=== PATIENT | male | born 1980 | race Caucasian/White ===

== ENCOUNTER → 2016-07-31 | Outpatient (CLI) | payer OTHER ==
--- NOTE | 2016-07-31 12:46 | REP ---
MR BRAIN WITHOUT AND WITH CONTRAST: HISTORY: Tumor. Contrast: ProHance 30 mL. COMPARISON: 02/07/2016 There are no areas of abnormal signal intensity in the brain parenchyma. There is no intraparenchymal hemorrhage, infarct, or midline shift. A 1 cm isointense nodule is present in the body of the right lateral ventricle. There is no enhancement. This is unchanged compared to the previous study. There is no hydrocephalus or extracerebral collection. The sinuses are clear. IMPRESSION: There is a 1 cm isointense nodule in the body of the right lateral ventricle unchanged in size compared to the previous study. 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 Signed by Manjit Michel MD 07/31/2016 01:08 P
== END ==
LOC: M RAD 10:27
PROVIDERS: ATTEND Neurological Surgery
DX: D49.6 Neoplasm of unspecified behavior of brain (principal)

== ENCOUNTER 2016-09-08 14:19 | Emergency (ER) | payer OTHER ==
--- NOTE | 2016-09-08 15:52 | REP ---
Clinical: Headache and dizziness . Comparison: 12/24/2015 . Findings: The sulci, and cisterns are normal in position and appearance. 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 Brooks-white differentiation is maintained. No acute intracranial hemorrhage, mass/mass effect, pathology or trauma/injury. No evidence for acute infarction. No extra-axial fluid collection. Calvarium is intact. Paranasal sinuses and mastoid air cells are clear. Impression: 1. Stable lesion in the right lateral ventricle consistent with diagnosis subependymoma. 2. No evidence for acute intracranial pathology or trauma/injury. Signed by Pelon Louise MD 09/08/2016 03:44 P
--- NOTE | 2016-09-08 16:15 | EDDOCDS ---
Nurse's Notes [facility] Name: Andrea Quintana Age: 36 yrs Sex: Male : 1980 Arrival Date: 09/08/2016 Time: 14:19 Bed PR Private MD: Jayne Clark Diagnosis: Otitis media, unspecified, left ear-WITH SERROUS EFFUSION Presentation: 09/08 14:26 Presenting complaint: Patient states: ''Fullness to both ears'' for 2 weeks, complains dwg of intermittent dizziness for one week. Also occasional tinnitus. Adult Sepsis Screening: The patient does not have new or worsening altered mentation. Patient's respiratory rate is less than 22. Systolic blood pressure is greater than 100. Patient has a qSOFA score of 0- Negative Sepsis Screen. Suicide/Homicide risk assessment- the patient denies having any suicidal and/or homicidal ideations and does not present with any other emotional, behavioral or mental health complaints. Status: Patient is not a service counselor or dependent. Transition of care: patient was not received from another setting of care. 14:26 Acuity: MANE Level 4 dwg 14:26 Method Of Arrival: Walkin/Carried/Asstd dwg Triage Assessment: 14:30 General: Appears in no apparent distress. Pain: Denies pain. HIV screening NA for this dwg visit Offered previously. Historical: - Allergies: Environmental allergies; - Home Meds: 1. amlodipine 2.5 mg Oral tab 1 tab once daily (Last dose: 09/08/2016 08:00) 2. Flonase 50 mcg/actuation Nasal spsn 1 spray 2 times per day (Last dose: 09/08/2016 08:00) - PMHx: benign tumor rt ventricle of brain; Hypertension; - PSHx: Ear tubes; - Social history: Smoking status: Electronic cigarettes No barriers to communication noted, The patient speaks fluent Icelandic. - : The pt / caregiver states he / she is not on anticoagulants. Home medication list is obtained from the patient. - Exposure Risk Screening:: None identified. Screenin:13 Screening information is obtained from the patient. Fall risk: No risks identified. jjr Assistance ADL's: requires no assistance with activities of daily living. Abuse/DV Screen: The patient / caregiver reports he/she is: not in a situation that causes fear, pain or injury. Nutritional screening: No deficits noted. Advance Directives: There is no active DNR order. home support is adequate. Assessment: 16:13 General: Appears in no apparent distress, Behavior is appropriate for age. Pain: Denies jjr pain. Neurological: No deficits noted. Reports dizziness. Respiratory: No deficits noted. Derm: No deficits noted. Vital Signs: 14:20 BP 169 / 95; Pulse 94; Resp 18; Temp 97.6; Pulse Ox 97% on R/A; Weight 170.1 kg (R); dem1 Height 6 ft. 4 in. (193.04 cm) (R); Pain 0/10; 14:38 BP 160 / 92 LA Sitting (man/lg); jb5 16:12 BP 130 / 88 LA Sitting (man/lg); Pulse 89; Resp 18; Temp 97.8(O); Pulse Ox 97% on R/A; jjr Pain 0/10; 16:12 BP 162 / 91 LA Sitting (auto/lg); jjr 14:20 Body Mass Index 45.65 (170.10 kg, 193.04 cm) [facility] Vitals: 14:20 Log In Time: September 08, 2016 at 14:19. [facility] ED Course: 14:20 Patient visited by Jeff Neil. dem1 14:20 Jayne Clark is Private Physician. dem1 14:20 Patient moved to Waiting dem1 14:22 Patient moved to Pre RCE dem1 14:28 Triage Initiated dwg 14:31 [facility] dt4 14:31 Guillermo Stokes MD is Attending Physician. dt4 14:31 Patient visited by Adeola Santos PA-C. dt4 14:31 Patient moved to Triage 3 dwg 14:52 Patient moved to TR1 mb9 14:55 [facility] Payment Agreement was scanned into [employer] and attached to record. mm15 15:58 Your own Physician is Referral Physician. dt4 16:00 Patient moved to PR1 / 25 jjr 16:12 CT Head Without Contrast Returned. EDMS 16:13 The patient / caregiver is instructed regarding the plan of care and ED course. jjr 16:14 No IV's were initiated during this patient's visit. No procedures done that require jjr assistance. Order Results: Radiology Order: CT Head Without Contrast Test: CT Head Without Contrast REASON FOR EXAMINATION: "DIZZINESS", HX OF TUMOR IN VENTRICLE; Clinical: Headache and dizziness .; ; Comparison: 12/24/2015 .; ; Findings:; The sulci, and cisterns are normal in position and appearance. 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 Brooks-white differentiation is; maintained. No acute intracranial hemorrhage, mass/mass effect, pathology or; trauma/injury. No evidence for acute infarction. No extra-axial fluid; collection. Calvarium is intact. Paranasal sinuses and mastoid air cells are; clear.; ; Impression:; 1. 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 No evidence for acute intracranial pathology or trauma/injury.; ; ; Signed by; Pelon Louise MD 09/08/2016 03:44 P; Outcome: 15:58 Discharge ordered by Provider. dt4 16:14 Discharge Assessment: patient administered narcotics - no. The following High Risk jjr Discharge criteria are identified: None. Discharged to home ambulatory. Condition: stable. Discharge instructions given to patient, Instructed on discharge instructions, follow up and referral plans. medication usage, Demonstrated understanding of instructions, medications, Prescriptions given X 1. CT Study completed. Property sent home with patient. 16:14 Patient left the ED. jjr Signatures: Dispatcher [employer] EDDony Cooper RN RN dwg Baker, Janet, ALLERGY SPECIALIST ALLERGY SPECIALIST jb5 Yoselin Baird RN RN jjr Mack, Demeishia dem1 Van Tejada mm15 Adeola Santos PALacie PA-Stephanie dt4 Ruperto RomanRN RN mb9 MTDD
--- NOTE | 2016-09-08 16:15 | EDDOCDS ---
Physician Documentation [facility] Name: Andrea Quintana Age: 36 yrs Sex: Male : 1980 Arrival Date: 09/08/2016 Time: 14:19 Bed PR Private MD: Jayne Clark Disposition: 09/08/16 15:58 Discharged to Home/Self Care. Impression: Otitis media, unspecified, left ear - WITH SERROUS EFFUSION. - Condition is Stable. - Discharge Instructions: Otitis Media, Adult. - Prescriptions for Amoxicillin 875 mg Oral Tablet - take 1 tablet by ORAL route every 12 hours for 10 days; 20 tablet. - Medication Reconciliation, Local Pharmacy Hours form. - Follow up: Emergency Department; When: As needed; Reason: Worsening of conditions. Follow up: Private Physician; When: 2 - 3 days; Reason: Wound/Symptom Recheck, Recheck today's complaints, Continuance of care. Follow up: Your own Physician; When: YOUR ENT PHYSICIAN, WITHIN THE NEXT WEEK; Reason: Wound/Symptom Recheck, Recheck today's complaints, Continuance of care. - Problem is new. - Symptoms are unchanged. - Notes: YOUR CT SHOWED NO CHANGE FROM YOUR PRIOR IMAGING. PLEASE FOLLOW UP WITH YOUR ENT PHYSICIAN IN THE NEXT WEEK TO DISCUSS OPTIONS FOR THE REMOVAL OF YOUR RIGHT EAR TUBE. Historical: - Allergies: Environmental allergies; - Home Meds: 1. amlodipine 2.5 mg Oral tab 1 tab once daily (Last dose: 09/08/2016 08:00) 2. Flonase 50 mcg/actuation Nasal spsn 1 spray 2 times per day (Last dose: 09/08/2016 08:00) - PMHx: benign tumor rt ventricle of brain; Hypertension; - PSHx: Ear tubes; - Social history: Smoking status: Electronic cigarettes No barriers to communication noted, The patient speaks fluent Luxembourgish. - : The pt / caregiver states he / she is not on anticoagulants. Home medication list is obtained from the patient. - Exposure Risk Screening:: None identified. Vital Signs: 09/08 14:20 BP 169 / 95; Pulse 94; Resp 18; Temp 97.6; Pulse Ox 97% on R/A; Weight 170.1 kg / dem1 375.01 lbs (R); Height 6 ft. 4 in. (193.04 cm) (R); Pain 0/10; 14:38 BP 160 / 92 LA Sitting (man/lg); jb5 16:12 BP 130 / 88 LA Sitting (man/lg); Pulse 89; Resp 18; Temp 97.8(O); Pulse Ox 97% on R/A; jjr Pain 0/10; 16:12 BP 162 / 91 LA Sitting (auto/lg); jjr 14:20 Body Mass Index 45.65 (170.10 kg, 193.04 cm) dem1 MDM: 14:30 Recheck B/P ordered. dt4 14:52 CT Head Without Contrast Ordered. EDMS 14:54 Financial registration complete. lg 14:55 [facility] Payment Agreement was scanned into [employer] and attached to record. mm15 Signatures: Dispatcher [employer] EDMS Dony Jacob, RN RN Adam Gandara, Rai Reg Yoselin Baird, RN RN Van Dsouza mm15 Adeola Santos PA-C PALacie dt4 The chart was reviewed and I authenticate all verbal orders and agree with the evaluation and treatment provided.Attachments: 14:55 [place] Payment Agreement mm15 MTDD
--- NOTE | 2016-09-10 17:15 | EDDOCDS ---
Physician Documentation [facility] Name: Andrea Quintana Age: 36 yrs Sex: Male : 1980 Arrival Date: 09/08/2016 Time: 14:19 Bed PR Private MD: Jayne Clark Disposition: 09/08/16 15:58 Discharged to Home/Self Care. Impression: Otitis media, unspecified, left ear - WITH SERROUS EFFUSION. - Condition is Stable. - Discharge Instructions: Otitis Media, Adult. - Prescriptions for Amoxicillin 875 mg Oral Tablet - take 1 tablet by ORAL route every 12 hours for 10 days; 20 tablet. - Medication Reconciliation, Local Pharmacy Hours form. - Follow up: Emergency Department; When: As needed; Reason: Worsening of conditions. Follow up: Private Physician; When: 2 - 3 days; Reason: Wound/Symptom Recheck, Recheck today's complaints, Continuance of care. Follow up: Your own Physician; When: YOUR ENT PHYSICIAN, WITHIN THE NEXT WEEK; Reason: Wound/Symptom Recheck, Recheck today's complaints, Continuance of care. - Problem is new. - Symptoms are unchanged. - Notes: YOUR CT SHOWED NO CHANGE FROM YOUR PRIOR IMAGING. PLEASE FOLLOW UP WITH YOUR ENT PHYSICIAN IN THE NEXT WEEK TO DISCUSS OPTIONS FOR THE REMOVAL OF YOUR RIGHT EAR TUBE. Historical: - Allergies: Environmental allergies; - Home Meds: 1. amlodipine 2.5 mg Oral tab 1 tab once daily (Last dose: 09/08/2016 08:00) 2. Flonase 50 mcg/actuation Nasal spsn 1 spray 2 times per day (Last dose: 09/08/2016 08:00) - PMHx: benign tumor rt ventricle of brain; Hypertension; - PSHx: Ear tubes; - Social history: Smoking status: Electronic cigarettes No barriers to communication noted, The patient speaks fluent Macedonian. - : The pt / caregiver states he / she is not on anticoagulants. Home medication list is obtained from the patient. - Exposure Risk Screening:: None identified. Vital Signs: 09/08 14:20 BP 169 / 95; Pulse 94; Resp 18; Temp 97.6; Pulse Ox 97% on R/A; Weight 170.1 kg / dem1 375.01 lbs (R); Height 6 ft. 4 in. (193.04 cm) (R); Pain 0/10; 14:38 BP 160 / 92 LA Sitting (man/lg); jb5 16:12 BP 130 / 88 LA Sitting (man/lg); Pulse 89; Resp 18; Temp 97.8(O); Pulse Ox 97% on R/A; jjr Pain 0/10; 16:12 BP 162 / 91 LA Sitting (auto/lg); jjr 14:20 Body Mass Index 45.65 (170.10 kg, 193.04 cm) dem1 MDM: 14:30 Recheck B/P ordered. dt4 14:52 CT Head Without Contrast Ordered. EDMS 14:54 Financial registration complete. lg 14:55 [facility] Payment Agreement was scanned into [employer] and attached to record. mm15 20:41 T-Sheet-- Draft Copy was scanned into [employer] and attached to record. klr Signatures: Dispatcher [employer] EDMS Dony Jacob, Adam Kendrick RN, Reg Reg Yoselin Baird RN RN jVan Rainey mm15 Adeola Santos, PA-C PALacie dt4 Josi Field The chart was reviewed and I authenticate all verbal orders and agree with the evaluation and treatment provided.Attachments: 14:55 [place] Payment Agreement mm15 20:41 T-Sheet-- Draft Copy klr Chart Complete MTDD
--- NOTE | 2016-09-10 17:15 | EDDOCDS ---
Nurse's Notes [facility] Name: Andrea Quintana Age: 36 yrs Sex: Male : 1980 Arrival Date: 09/08/2016 Time: 14:19 Bed PR Private MD: Jayne Clark Diagnosis: Otitis media, unspecified, left ear-WITH SERROUS EFFUSION Presentation: 09/08 14:26 Presenting complaint: Patient states: ''Fullness to both ears'' for 2 weeks, complains dwg of intermittent dizziness for one week. Also occasional tinnitus. Adult Sepsis Screening: The patient does not have new or worsening altered mentation. Patient's respiratory rate is less than 22. Systolic blood pressure is greater than 100. Patient has a qSOFA score of 0- Negative Sepsis Screen. Suicide/Homicide risk assessment- the patient denies having any suicidal and/or homicidal ideations and does not present with any other emotional, behavioral or mental health complaints. Status: Patient is not a repair service dispatcher or dependent. Transition of care: patient was not received from another setting of care. 14:26 Acuity: MANE Level 4 dwg 14:26 Method Of Arrival: Walkin/Carried/Asstd dwg Triage Assessment: 14:30 General: Appears in no apparent distress. Pain: Denies pain. HIV screening NA for this dwg visit Offered previously. Historical: - Allergies: Environmental allergies; - Home Meds: 1. amlodipine 2.5 mg Oral tab 1 tab once daily (Last dose: 09/08/2016 08:00) 2. Flonase 50 mcg/actuation Nasal spsn 1 spray 2 times per day (Last dose: 09/08/2016 08:00) - PMHx: benign tumor rt ventricle of brain; Hypertension; - PSHx: Ear tubes; - Social history: Smoking status: Electronic cigarettes No barriers to communication noted, The patient speaks fluent Amharic. - : The pt / caregiver states he / she is not on anticoagulants. Home medication list is obtained from the patient. - Exposure Risk Screening:: None identified. Screenin:13 Screening information is obtained from the patient. Fall risk: No risks identified. jjr Assistance ADL's: requires no assistance with activities of daily living. Abuse/DV Screen: The patient / caregiver reports he/she is: not in a situation that causes fear, pain or injury. Nutritional screening: No deficits noted. Advance Directives: There is no active DNR order. home support is adequate. Assessment: 16:13 General: Appears in no apparent distress, Behavior is appropriate for age. Pain: Denies jjr pain. Neurological: No deficits noted. Reports dizziness. Respiratory: No deficits noted. Derm: No deficits noted. Vital Signs: 14:20 BP 169 / 95; Pulse 94; Resp 18; Temp 97.6; Pulse Ox 97% on R/A; Weight 170.1 kg (R); dem1 Height 6 ft. 4 in. (193.04 cm) (R); Pain 0/10; 14:38 BP 160 / 92 LA Sitting (man/lg); jb5 16:12 BP 130 / 88 LA Sitting (man/lg); Pulse 89; Resp 18; Temp 97.8(O); Pulse Ox 97% on R/A; jjr Pain 0/10; 16:12 BP 162 / 91 LA Sitting (auto/lg); jjr 14:20 Body Mass Index 45.65 (170.10 kg, 193.04 cm) [facility] Vitals: 14:20 Log In Time: September 08, 2016 at 14:19. [facility] ED Course: 14:20 Patient visited by Jeff Neil. dem1 14:20 Jayne Clark is Private Physician. dem1 14:20 Patient moved to Waiting dem1 14:22 Patient moved to Pre RCE dem1 14:28 Triage Initiated dwg 14:31 [facility]. dt4 14:31 Guillermo Stokes MD is Attending Physician. dt4 14:31 Patient visited by Adeola Santos PA-C. dt4 14:31 Patient moved to Triage 3 dwg 14:52 Patient moved to TR1 mb9 14:55 [facility] Payment Agreement was scanned into [employer] and attached to record. mm15 15:58 Your own Physician is Referral Physician. dt4 16:00 Patient moved to PR1 / 25 jjr 16:12 CT Head Without Contrast Returned. EDMS 16:13 The patient / caregiver is instructed regarding the plan of care and ED course. jjr 16:14 No IV's were initiated during this patient's visit. No procedures done that require jjr assistance. 20:41 T-Sheet-- Draft Copy was scanned into [employer] and attached to record. klr Order Results: Radiology Order: CT Head Without Contrast Test: CT Head Without Contrast REASON FOR EXAMINATION: "DIZZINESS", HX OF TUMOR IN VENTRICLE; Clinical: Headache and dizziness .; ; Comparison: 12/24/2015 .; ; Findings:; The sulci, and cisterns are normal in position and appearance. 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 Brooks-white differentiation is; maintained. No acute intracranial hemorrhage, mass/mass effect, pathology or; trauma/injury. No evidence for acute infarction. No extra-axial fluid; collection. Calvarium is intact. Paranasal sinuses and mastoid air cells are; clear.; ; Impression:; 1. 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 No evidence for acute intracranial pathology or trauma/injury.; ; ; Signed by; Pelon Louise MD 09/08/2016 03:44 P; Outcome: 15:58 Discharge ordered by Provider. dt4 16:14 Discharge Assessment: patient administered narcotics - no. The following High Risk jjr Discharge criteria are identified: None. Discharged to home ambulatory. Condition: stable. Discharge instructions given to patient, Instructed on discharge instructions, follow up and referral plans. medication usage, Demonstrated understanding of instructions, medications, Prescriptions given X 1. CT Study completed. Property sent home with patient. 16:14 Patient left the ED. jjr Signatures: [facility]patcher [facility] Dony Demarco RN RN dwg Baker, Janet, [employer]ANA REVENUE STAMP CLERK jb5 Yoselin Baird RN RN jjr Mack, Demeishia dem1 Van Tejada mm15 Adeola Santos PA-C PALacie dt4 Ruperto Roman RN RN Josi Walden Chart Complete MTDD
--- NOTE | 2016-09-10 17:15 | EDDOCDS ---
Physician Documentation [facility] Name: Andrea Quintana Age: 36 yrs Sex: Male : 1980 Arrival Date: 09/08/2016 Time: 14:19 Bed PR Private MD: Jayne Clark Disposition: 09/08/16 15:58 Discharged to Home/Self Care. Impression: Otitis media, unspecified, left ear - WITH SERROUS EFFUSION. - Condition is Stable. - Discharge Instructions: Otitis Media, Adult. - Prescriptions for Amoxicillin 875 mg Oral Tablet - take 1 tablet by ORAL route every 12 hours for 10 days; 20 tablet. - Medication Reconciliation, Local Pharmacy Hours form. - Follow up: Emergency Department; When: As needed; Reason: Worsening of conditions. Follow up: Private Physician; When: 2 - 3 days; Reason: Wound/Symptom Recheck, Recheck today's complaints, Continuance of care. Follow up: Your own Physician; When: YOUR ENT PHYSICIAN, WITHIN THE NEXT WEEK; Reason: Wound/Symptom Recheck, Recheck today's complaints, Continuance of care. - Problem is new. - Symptoms are unchanged. - Notes: YOUR CT SHOWED NO CHANGE FROM YOUR PRIOR IMAGING. PLEASE FOLLOW UP WITH YOUR ENT PHYSICIAN IN THE NEXT WEEK TO DISCUSS OPTIONS FOR THE REMOVAL OF YOUR RIGHT EAR TUBE. Historical: - Allergies: Environmental allergies; - Home Meds: 1. amlodipine 2.5 mg Oral tab 1 tab once daily (Last dose: 09/08/2016 08:00) 2. Flonase 50 mcg/actuation Nasal spsn 1 spray 2 times per day (Last dose: 09/08/2016 08:00) - PMHx: benign tumor rt ventricle of brain; Hypertension; - PSHx: Ear tubes; - Social history: Smoking status: Electronic cigarettes No barriers to communication noted, The patient speaks fluent Maltese. - : The pt / caregiver states he / she is not on anticoagulants. Home medication list is obtained from the patient. - Exposure Risk Screening:: None identified. Vital Signs: 09/08 14:20 BP 169 / 95; Pulse 94; Resp 18; Temp 97.6; Pulse Ox 97% on R/A; Weight 170.1 kg / dem1 375.01 lbs (R); Height 6 ft. 4 in. (193.04 cm) (R); Pain 0/10; 14:38 BP 160 / 92 LA Sitting (man/lg); jb5 16:12 BP 130 / 88 LA Sitting (man/lg); Pulse 89; Resp 18; Temp 97.8(O); Pulse Ox 97% on R/A; jjr Pain 0/10; 16:12 BP 162 / 91 LA Sitting (auto/lg); jjr 14:20 Body Mass Index 45.65 (170.10 kg, 193.04 cm) dem1 MDM: 14:30 Recheck B/P ordered. dt4 14:52 CT Head Without Contrast Ordered. EDMS 14:54 Financial registration complete. lg 14:55 [facility] Payment Agreement was scanned into [employer] and attached to record. mm15 20:41 T-Sheet-- Draft Copy was scanned into [employer] and attached to record. klr Signatures: Dispatcher [employer] EDMS Dony Jacob, Adam Kendrick RN, Reg Reg Yoselin Baird RN RN jVan Rainey mm15 Adeola Santos, PA-C PALacie dt4 Josi Field The chart was reviewed and I authenticate all verbal orders and agree with the evaluation and treatment provided.Attachments: 14:55 [facility] Payment Agreement mm15 20:41 T-Sheet-- Draft Copy klr Chart Complete MTDD
--- NOTE | 2016-09-11 14:23 | EDDOCDS ---
Physician Documentation [facility] Name: Andrea Quintana Age: 36 yrs Sex: Male : 1980 Arrival Date: 09/08/2016 Time: 14:19 Bed PR Private MD: Jayne Clark Disposition: 09/08/16 15:58 Discharged to Home/Self Care. Impression: Otitis media, unspecified, left ear - WITH SERROUS EFFUSION. - Condition is Stable. - Discharge Instructions: Otitis Media, Adult. - Prescriptions for Amoxicillin 875 mg Oral Tablet - take 1 tablet by ORAL route every 12 hours for 10 days; 20 tablet. - Medication Reconciliation, Local Pharmacy Hours form. - Follow up: Emergency Department; When: As needed; Reason: Worsening of conditions. Follow up: Private Physician; When: 2 - 3 days; Reason: Wound/Symptom Recheck, Recheck today's complaints, Continuance of care. Follow up: Your own Physician; When: YOUR ENT PHYSICIAN, WITHIN THE NEXT WEEK; Reason: Wound/Symptom Recheck, Recheck today's complaints, Continuance of care. - Problem is new. - Symptoms are unchanged. - Notes: YOUR CT SHOWED NO CHANGE FROM YOUR PRIOR IMAGING. PLEASE FOLLOW UP WITH YOUR ENT PHYSICIAN IN THE NEXT WEEK TO DISCUSS OPTIONS FOR THE REMOVAL OF YOUR RIGHT EAR TUBE. Historical: - Allergies: Environmental allergies; - Home Meds: 1. amlodipine 2.5 mg Oral tab 1 tab once daily (Last dose: 09/08/2016 08:00) 2. Flonase 50 mcg/actuation Nasal spsn 1 spray 2 times per day (Last dose: 09/08/2016 08:00) - PMHx: benign tumor rt ventricle of brain; Hypertension; - PSHx: Ear tubes; - Social history: Smoking status: Electronic cigarettes No barriers to communication noted, The patient speaks fluent Faroese. - : The pt / caregiver states he / she is not on anticoagulants. Home medication list is obtained from the patient. - Exposure Risk Screening:: None identified. Vital Signs: 09/08 14:20 BP 169 / 95; Pulse 94; Resp 18; Temp 97.6; Pulse Ox 97% on R/A; Weight 170.1 kg / dem1 375.01 lbs (R); Height 6 ft. 4 in. (193.04 cm) (R); Pain 0/10; 14:38 BP 160 / 92 LA Sitting (man/lg); jb5 16:12 BP 130 / 88 LA Sitting (man/lg); Pulse 89; Resp 18; Temp 97.8(O); Pulse Ox 97% on R/A; jjr Pain 0/10; 16:12 BP 162 / 91 LA Sitting (auto/lg); jjr 14:20 Body Mass Index 45.65 (170.10 kg, 193.04 cm) dem1 MDM: 14:30 Recheck B/P ordered. dt4 14:52 CT Head Without Contrast Ordered. EDMS 14:54 Financial registration complete. lg 14:55 [facility] [place] was scanned into Agillic and attached to record. mm15 20:41 T-Sheet-- Draft Copy was scanned into Agillic and attached to record. klr Addendum: 09/11/2016 14:21 Radiology Callback: Radiology results faxed to primary care physician/provider. Jayne sd1 Eduardo. Signatures: Dispatcher MedHost EDAZ Jenae Lyles MD MD sd1 Dony Jacob, RN RN Adam Gandara, Reg Reg lg Yoselin Baird, RN RN jjVan Corrales mm15 Adeola Santos PA-C PA-C dt4 Josi Field The chart was reviewed and I authenticate all verbal orders and agree with the evaluation and treatment provided.Attachments: 09/08 14:55 [facility] [place] Agreement mm15 20:41 T-Sheet-- Draft Copy klr MTDD
--- NOTE | 2016-09-11 14:23 | EDDOCDS ---
Physician Documentation [facility] Name: Andrea Quintana Age: 36 yrs Sex: Male : 1980 Arrival Date: 09/08/2016 Time: 14:19 Bed PR Private MD: Jayne Clark Disposition: 09/08/16 15:58 Discharged to Home/Self Care. Impression: Otitis media, unspecified, left ear - WITH SERROUS EFFUSION. - Condition is Stable. - Discharge Instructions: Otitis Media, Adult. - Prescriptions for Amoxicillin 875 mg Oral Tablet - take 1 tablet by ORAL route every 12 hours for 10 days; 20 tablet. - Medication Reconciliation, Local Pharmacy Hours form. - Follow up: Emergency Department; When: As needed; Reason: Worsening of conditions. Follow up: Private Physician; When: 2 - 3 days; Reason: Wound/Symptom Recheck, Recheck today's complaints, Continuance of care. Follow up: Your own Physician; When: YOUR ENT PHYSICIAN, WITHIN THE NEXT WEEK; Reason: Wound/Symptom Recheck, Recheck today's complaints, Continuance of care. - Problem is new. - Symptoms are unchanged. - Notes: YOUR CT SHOWED NO CHANGE FROM YOUR PRIOR IMAGING. PLEASE FOLLOW UP WITH YOUR ENT PHYSICIAN IN THE NEXT WEEK TO DISCUSS OPTIONS FOR THE REMOVAL OF YOUR RIGHT EAR TUBE. Historical: - Allergies: Environmental allergies; - Home Meds: 1. amlodipine 2.5 mg Oral tab 1 tab once daily (Last dose: 09/08/2016 08:00) 2. Flonase 50 mcg/actuation Nasal spsn 1 spray 2 times per day (Last dose: 09/08/2016 08:00) - PMHx: benign tumor rt ventricle of brain; Hypertension; - PSHx: Ear tubes; - Social history: Smoking status: Electronic cigarettes No barriers to communication noted, The patient speaks fluent Slovenian. - : The pt / caregiver states he / she is not on anticoagulants. Home medication list is obtained from the patient. - Exposure Risk Screening:: None identified. Vital Signs: 09/08 14:20 BP 169 / 95; Pulse 94; Resp 18; Temp 97.6; Pulse Ox 97% on R/A; Weight 170.1 kg / dem1 375.01 lbs (R); Height 6 ft. 4 in. (193.04 cm) (R); Pain 0/10; 14:38 BP 160 / 92 LA Sitting (man/lg); jb5 16:12 BP 130 / 88 LA Sitting (man/lg); Pulse 89; Resp 18; Temp 97.8(O); Pulse Ox 97% on R/A; jjr Pain 0/10; 16:12 BP 162 / 91 LA Sitting (auto/lg); jjr 14:20 Body Mass Index 45.65 (170.10 kg, 193.04 cm) dem1 MDM: 14:30 Recheck B/P ordered. dt4 14:52 CT Head Without Contrast Ordered. EDMS 14:54 Financial registration complete. lg 14:55 [facility] was scanned into Rollbar and attached to record. mm15 20:41 T-Sheet-- Draft Copy was scanned into Rollbar and attached to record. klr Addendum: 09/11/2016 14:21 Radiology Callback: Radiology results faxed to primary care physician/provider. Jayne sd1 Eduardo. Signatures: Dispatcher MedHost EDHI Jenae Lyles MD MD sd1 Dony Jacob, RN RN Adam Gandara, Reg Reg lg Yoselin Baird, RN RN jjVan Corrales mm15 Adeola Santos PA-C PA-C dt4 Josi Field The chart was reviewed and I authenticate all verbal orders and agree with the evaluation and treatment provided.Attachments: 09/08 14:55 [facility] [place] mm15 20:41 T-Sheet-- Draft Copy klr MTDD
--- NOTE | 2016-09-11 14:23 | EDDOCDS ---
Nurse's Notes [facility] Name: Andrea Quintana Age: 36 yrs Sex: Male : 1980 Arrival Date: 09/08/2016 Time: 14:19 Bed PR Private MD: Jayne Clark Diagnosis: Otitis media, unspecified, left ear-WITH SERROUS EFFUSION Presentation: 09/08 14:26 Presenting complaint: Patient states: ''Fullness to both ears'' for 2 weeks, complains dwg of intermittent dizziness for one week. Also occasional tinnitus. Adult Sepsis Screening: The patient does not have new or worsening altered mentation. Patient's respiratory rate is less than 22. Systolic blood pressure is greater than 100. Patient has a qSOFA score of 0- Negative Sepsis Screen. Suicide/Homicide risk assessment- the patient denies having any suicidal and/or homicidal ideations and does not present with any other emotional, behavioral or mental health complaints. 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 Transition of care: patient was not received from another setting of care. 14:26 Acuity: MANE Level 4 dwg 14:26 Method Of Arrival: Walkin/Carried/Asstd dwg Triage Assessment: 14:30 General: Appears in no apparent distress. Pain: Denies pain. HIV screening NA for this dwg visit Offered previously. Historical: - Allergies: Environmental allergies; - Home Meds: 1. amlodipine 2.5 mg Oral tab 1 tab once daily (Last dose: 09/08/2016 08:00) 2. Flonase 50 mcg/actuation Nasal spsn 1 spray 2 times per day (Last dose: 09/08/2016 08:00) - PMHx: benign tumor rt ventricle of brain; Hypertension; - PSHx: Ear tubes; - Social history: Smoking status: Electronic cigarettes No barriers to communication noted, The patient speaks fluent Italian. - : The pt / caregiver states he / she is not on anticoagulants. Home medication list is obtained from the patient. - Exposure Risk Screening:: None identified. Screenin:13 Screening information is obtained from the patient. Fall risk: No risks identified. jjr Assistance ADL's: requires no assistance with activities of daily living. Abuse/DV Screen: The patient / caregiver reports he/she is: not in a situation that causes fear, pain or injury. Nutritional screening: No deficits noted. Advance Directives: There is no active DNR order. home support is adequate. Assessment: 16:13 General: Appears in no apparent distress, Behavior is appropriate for age. Pain: Denies jjr pain. Neurological: No deficits noted. Reports dizziness. Respiratory: No deficits noted. Derm: No deficits noted. Vital Signs: 14:20 BP 169 / 95; Pulse 94; Resp 18; Temp 97.6; Pulse Ox 97% on R/A; Weight 170.1 kg (R); dem1 Height 6 ft. 4 in. (193.04 cm) (R); Pain 0/10; 14:38 BP 160 / 92 LA Sitting (man/lg); jb5 16:12 BP 130 / 88 LA Sitting (man/lg); Pulse 89; Resp 18; Temp 97.8(O); Pulse Ox 97% on R/A; jjr Pain 0/10; 16:12 BP 162 / 91 LA Sitting (auto/lg); jjr 14:20 Body Mass Index 45.65 (170.10 kg, 193.04 cm) [facility] Vitals: 14:20 Log In Time: September 08, 2016 at 14:19. [facility] ED Course: 14:20 Patient visited by Jeff Neil. dem1 14:20 Jayne Clark is Private Physician. dem1 14:20 Patient moved to Waiting dem1 14:22 Patient moved to Pre RCE dem1 14:28 Triage Initiated dwg 14:31 [facility] dt4 14:31 Guillermo Stokes MD is Attending Physician. dt4 14:31 Patient visited by Adeola Santos PA-C. dt4 14:31 Patient moved to Triage 3 dwg 14:52 Patient moved to TR1 mb9 14:55 [facility] Payment Agreement was scanned into Brightstorm and attached to record. mm15 15:58 Your own Physician is Referral Physician. dt4 16:00 Patient moved to PR1 / 25 jjr 16:12 CT Head Without Contrast Returned. EDMS 16:13 The patient / caregiver is instructed regarding the plan of care and ED course. jjr 16:14 No IV's were initiated during this patient's visit. No procedures done that require jjr assistance. 20:41 T-Sheet-- Draft Copy was scanned into Brightstorm and attached to record. klr Order Results: Radiology Order: CT Head Without Contrast Test: CT Head Without Contrast REASON FOR EXAMINATION: "DIZZINESS", HX OF TUMOR IN VENTRICLE; Clinical: Headache and dizziness .; ; Comparison: 12/24/2015 .; ; Findings:; The sulci, and cisterns are normal in position and appearance. 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 Brooks-white differentiation is; maintained. No acute intracranial hemorrhage, mass/mass effect, pathology or; trauma/injury. No evidence for acute infarction. No extra-axial fluid; collection. Calvarium is intact. Paranasal sinuses and mastoid air cells are; clear.; ; Impression:; 1. 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 No evidence for acute intracranial pathology or trauma/injury.; ; ; Signed by; Pelon Louise MD 09/08/2016 03:44 P; Outcome: 15:58 Discharge ordered by Provider. dt4 16:14 Discharge Assessment: patient administered narcotics - no. The following High Risk jjr Discharge criteria are identified: None. Discharged to home ambulatory. Condition: stable. Discharge instructions given to patient, Instructed on discharge instructions, follow up and referral plans. medication usage, Demonstrated understanding of instructions, medications, Prescriptions given X 1. CT Study completed. Property sent home with patient. 16:14 Patient left the ED. jjr Signatures: Dispatcher [facility] Dony Demarco RN RN dwg Baker, Janet, KEYANA NURSING SERVICE ADMINISTRATOR jb5 Yoselin Baird RN RN jjr Mack, Demeishia dem1 Van Tejada mm15 Adeola Santos PA-C PALacie dt4 Ruperto Roman RN RN Josi Walden Chart Complete MTDD
--- NOTE | 2016-09-11 14:23 | EDDOCDS ---
Physician Documentation [facility] Name: Andrea Quintana Age: 36 yrs Sex: Male : 1980 Arrival Date: 09/08/2016 Time: 14:19 Bed PR Private MD: Jayne Clark Disposition: 09/08/16 15:58 Discharged to Home/Self Care. Impression: Otitis media, unspecified, left ear - WITH SERROUS EFFUSION. - Condition is Stable. - Discharge Instructions: Otitis Media, Adult. - Prescriptions for Amoxicillin 875 mg Oral Tablet - take 1 tablet by ORAL route every 12 hours for 10 days; 20 tablet. - Medication Reconciliation, Local Pharmacy Hours form. - Follow up: Emergency Department; When: As needed; Reason: Worsening of conditions. Follow up: Private Physician; When: 2 - 3 days; Reason: Wound/Symptom Recheck, Recheck today's complaints, Continuance of care. Follow up: Your own Physician; When: YOUR ENT PHYSICIAN, WITHIN THE NEXT WEEK; Reason: Wound/Symptom Recheck, Recheck today's complaints, Continuance of care. - Problem is new. - Symptoms are unchanged. - Notes: YOUR CT SHOWED NO CHANGE FROM YOUR PRIOR IMAGING. PLEASE FOLLOW UP WITH YOUR ENT PHYSICIAN IN THE NEXT WEEK TO DISCUSS OPTIONS FOR THE REMOVAL OF YOUR RIGHT EAR TUBE. Historical: - Allergies: Environmental allergies; - Home Meds: 1. amlodipine 2.5 mg Oral tab 1 tab once daily (Last dose: 09/08/2016 08:00) 2. Flonase 50 mcg/actuation Nasal spsn 1 spray 2 times per day (Last dose: 09/08/2016 08:00) - PMHx: benign tumor rt ventricle of brain; Hypertension; - PSHx: Ear tubes; - Social history: Smoking status: Electronic cigarettes No barriers to communication noted, The patient speaks fluent Syriac. - : The pt / caregiver states he / she is not on anticoagulants. Home medication list is obtained from the patient. - Exposure Risk Screening:: None identified. Vital Signs: 09/08 14:20 BP 169 / 95; Pulse 94; Resp 18; Temp 97.6; Pulse Ox 97% on R/A; Weight 170.1 kg / dem1 375.01 lbs (R); Height 6 ft. 4 in. (193.04 cm) (R); Pain 0/10; 14:38 BP 160 / 92 LA Sitting (man/lg); jb5 16:12 BP 130 / 88 LA Sitting (man/lg); Pulse 89; Resp 18; Temp 97.8(O); Pulse Ox 97% on R/A; jjr Pain 0/10; 16:12 BP 162 / 91 LA Sitting (auto/lg); jjr 14:20 Body Mass Index 45.65 (170.10 kg, 193.04 cm) dem1 MDM: 14:30 Recheck B/P ordered. dt4 14:52 CT Head Without Contrast Ordered. EDMS 14:54 Financial registration complete. lg 14:55 [facility] [place] Agreement was scanned into Superbly and attached to record. mm15 20:41 T-Sheet-- Draft Copy was scanned into Superbly and attached to record. klr Addendum: 09/11/2016 14:21 Radiology Callback: Radiology results faxed to primary care physician/provider. Jayne sd1 Eduardo. Signatures: Dispatcher MedHost EDOR Jenae Lyles MD MD sd1 Dony Jacob, RN RN Adam Gandara, Rai Reg lg Yoselin Baird, RN RN jjVan Corrales mm15 Adeola Santos PA-C PA-C dt4 Josi Field The chart was reviewed and I authenticate all verbal orders and agree with the evaluation and treatment provided.Attachments: 09/08 14:55 [facility] [place] Agreement mm15 20:41 T-Sheet-- Draft Copy klr Chart Complete MTDD
--- NOTE | 2016-09-11 14:23 | EDDOCDS ---
Nurse's Notes [facility] Name: Andrea Quintana Age: 36 yrs Sex: Male : 1980 Arrival Date: 09/08/2016 Time: 14:19 Bed PR Private MD: Jayne Clark Diagnosis: Otitis media, unspecified, left ear-WITH SERROUS EFFUSION Presentation: 09/08 14:26 Presenting complaint: Patient states: ''Fullness to both ears'' for 2 weeks, complains dwg of intermittent dizziness for one week. Also occasional tinnitus. Adult Sepsis Screening: The patient does not have new or worsening altered mentation. Patient's respiratory rate is less than 22. Systolic blood pressure is greater than 100. Patient has a qSOFA score of 0- Negative Sepsis Screen. Suicide/Homicide risk assessment- the patient denies having any suicidal and/or homicidal ideations and does not present with any other emotional, behavioral or mental health complaints. 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 Transition of care: patient was not received from another setting of care. 14:26 Acuity: MANE Level 4 dwg 14:26 Method Of Arrival: Walkin/Carried/Asstd dwg Triage Assessment: 14:30 General: Appears in no apparent distress. Pain: Denies pain. HIV screening NA for this dwg visit Offered previously. Historical: - Allergies: Environmental allergies; - Home Meds: 1. amlodipine 2.5 mg Oral tab 1 tab once daily (Last dose: 09/08/2016 08:00) 2. Flonase 50 mcg/actuation Nasal spsn 1 spray 2 times per day (Last dose: 09/08/2016 08:00) - PMHx: benign tumor rt ventricle of brain; Hypertension; - PSHx: Ear tubes; - Social history: Smoking status: Electronic cigarettes No barriers to communication noted, The patient speaks fluent Tajik. - : The pt / caregiver states he / she is not on anticoagulants. Home medication list is obtained from the patient. - Exposure Risk Screening:: None identified. Screenin:13 Screening information is obtained from the patient. Fall risk: No risks identified. jjr Assistance ADL's: requires no assistance with activities of daily living. Abuse/DV Screen: The patient / caregiver reports he/she is: not in a situation that causes fear, pain or injury. Nutritional screening: No deficits noted. Advance Directives: There is no active DNR order. home support is adequate. Assessment: 16:13 General: Appears in no apparent distress, Behavior is appropriate for age. Pain: Denies jjr pain. Neurological: No deficits noted. Reports dizziness. Respiratory: No deficits noted. Derm: No deficits noted. Vital Signs: 14:20 BP 169 / 95; Pulse 94; Resp 18; Temp 97.6; Pulse Ox 97% on R/A; Weight 170.1 kg (R); dem1 Height 6 ft. 4 in. (193.04 cm) (R); Pain 0/10; 14:38 BP 160 / 92 LA Sitting (man/lg); jb5 16:12 BP 130 / 88 LA Sitting (man/lg); Pulse 89; Resp 18; Temp 97.8(O); Pulse Ox 97% on R/A; jjr Pain 0/10; 16:12 BP 162 / 91 LA Sitting (auto/lg); jjr 14:20 Body Mass Index 45.65 (170.10 kg, 193.04 cm) [facility] Vitals: 14:20 Log In Time: September 08, 2016 at 14:19. [facility] ED Course: 14:20 Patient visited by Jeff Neil. dem1 14:20 Jayne Clark is Private Physician. dem1 14:20 Patient moved to Waiting dem1 14:22 Patient moved to Pre RCE dem1 14:28 Triage Initiated dwg 14:31 [facility]. dt4 14:31 Guillermo Stokes MD is Attending Physician. dt4 14:31 Patient visited by Adeola Santos PA-C. dt4 14:31 Patient moved to Triage 3 dwg 14:52 Patient moved to TR1 mb9 14:55 [facility] Payment Agreement was scanned into [employer] and attached to record. mm15 15:58 Your own Physician is Referral Physician. dt4 16:00 Patient moved to PR1 / 25 jjr 16:12 CT Head Without Contrast Returned. EDMS 16:13 The patient / caregiver is instructed regarding the plan of care and ED course. jjr 16:14 No IV's were initiated during this patient's visit. No procedures done that require jjr assistance. 20:41 T-Sheet-- Draft Copy was scanned into [employer] and attached to record. klr Order Results: Radiology Order: CT Head Without Contrast Test: CT Head Without Contrast REASON FOR EXAMINATION: "DIZZINESS", HX OF TUMOR IN VENTRICLE; Clinical: Headache and dizziness .; ; Comparison: 12/24/2015 .; ; Findings:; The sulci, and cisterns are normal in position and appearance. 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 Brooks-white differentiation is; maintained. No acute intracranial hemorrhage, mass/mass effect, pathology or; trauma/injury. No evidence for acute infarction. No extra-axial fluid; collection. Calvarium is intact. Paranasal sinuses and mastoid air cells are; clear.; ; Impression:; 1. 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 No evidence for acute intracranial pathology or trauma/injury.; ; ; Signed by; Pelon Louise MD 09/08/2016 03:44 P; Outcome: 15:58 Discharge ordered by Provider. dt4 16:14 Discharge Assessment: patient administered narcotics - no. The following High Risk jjr Discharge criteria are identified: None. Discharged to home ambulatory. Condition: stable. Discharge instructions given to patient, Instructed on discharge instructions, follow up and referral plans. medication usage, Demonstrated understanding of instructions, medications, Prescriptions given X 1. CT Study completed. Property sent home with patient. 16:14 Patient left the ED. jjr Signatures: Dispatcher [facility] Dony Demarco RN RN dwg Baker, Janet, KEYANA BARTENDERS jb5 Yoselin Baird RN RN jjr Mack, Demeishia dem1 Van Tejada mm15 Adeola Santos PA-C PALacie dt4 Ruperto Roman RN RN Josi Walden MTDD
--- NOTE | 2016-09-11 14:23 | EDDOCDS ---
Physician Documentation [facility] Name: Andrea Quintana Age: 36 yrs Sex: Male : 1980 Arrival Date: 09/08/2016 Time: 14:19 Bed PR Private MD: Jayne Clark Disposition: 09/08/16 15:58 Discharged to Home/Self Care. Impression: Otitis media, unspecified, left ear - WITH SERROUS EFFUSION. - Condition is Stable. - Discharge Instructions: Otitis Media, Adult. - Prescriptions for Amoxicillin 875 mg Oral Tablet - take 1 tablet by ORAL route every 12 hours for 10 days; 20 tablet. - Medication Reconciliation, Local Pharmacy Hours form. - Follow up: Emergency Department; When: As needed; Reason: Worsening of conditions. Follow up: Private Physician; When: 2 - 3 days; Reason: Wound/Symptom Recheck, Recheck today's complaints, Continuance of care. Follow up: Your own Physician; When: YOUR ENT PHYSICIAN, WITHIN THE NEXT WEEK; Reason: Wound/Symptom Recheck, Recheck today's complaints, Continuance of care. - Problem is new. - Symptoms are unchanged. - Notes: YOUR CT SHOWED NO CHANGE FROM YOUR PRIOR IMAGING. PLEASE FOLLOW UP WITH YOUR ENT PHYSICIAN IN THE NEXT WEEK TO DISCUSS OPTIONS FOR THE REMOVAL OF YOUR RIGHT EAR TUBE. Historical: - Allergies: Environmental allergies; - Home Meds: 1. amlodipine 2.5 mg Oral tab 1 tab once daily (Last dose: 09/08/2016 08:00) 2. Flonase 50 mcg/actuation Nasal spsn 1 spray 2 times per day (Last dose: 09/08/2016 08:00) - PMHx: benign tumor rt ventricle of brain; Hypertension; - PSHx: Ear tubes; - Social history: Smoking status: Electronic cigarettes No barriers to communication noted, The patient speaks fluent Syriac. - : The pt / caregiver states he / she is not on anticoagulants. Home medication list is obtained from the patient. - Exposure Risk Screening:: None identified. Vital Signs: 09/08 14:20 BP 169 / 95; Pulse 94; Resp 18; Temp 97.6; Pulse Ox 97% on R/A; Weight 170.1 kg / dem1 375.01 lbs (R); Height 6 ft. 4 in. (193.04 cm) (R); Pain 0/10; 14:38 BP 160 / 92 LA Sitting (man/lg); jb5 16:12 BP 130 / 88 LA Sitting (man/lg); Pulse 89; Resp 18; Temp 97.8(O); Pulse Ox 97% on R/A; jjr Pain 0/10; 16:12 BP 162 / 91 LA Sitting (auto/lg); jjr 14:20 Body Mass Index 45.65 (170.10 kg, 193.04 cm) dem1 MDM: 14:30 Recheck B/P ordered. dt4 14:52 CT Head Without Contrast Ordered. EDMS 14:54 Financial registration complete. lg 14:55 [facility] [place] Agreement was scanned into Kimelt[employer] and attached to record. mm15 20:41 T-Sheet-- Draft Copy was scanned into Kim[employer] and attached to record. klr Addendum: 09/11/2016 14:21 Radiology Callback: Radiology results faxed to primary care physician/provider. Jayne sd1 Eduardo. Signatures: Dispatcher [employer] EDAK Jenae Lyles MD MD sd1 Dony Jacob, RN RN Adam Gandara, Rai Reg lg Yoselin Baird, RN RN jjVan Corrales mm15 Adeola Santos PA-C PA-C dt4 Josi Field The chart was reviewed and I authenticate all verbal orders and agree with the evaluation and treatment provided.Attachments: 09/08 14:55 [facility] [place] Agreement mm15 20:41 T-Sheet-- Draft Copy klr Chart Complete MTDD
== END 2016-09-08 16:14 | disposition home or self-care (01) ==
LOC: M ED 14:19
DX: H65.92 Unspecified nonsuppurative otitis media, left ear (principal); I10 Essential (primary) hypertension; J30.2 Other seasonal allergic rhinitis; D33.0 Benign neoplasm of brain, supratentorial; Z79.899 Other long term (current) drug therapy; F17.200 Nicotine dependence, unspecified, uncomplicated

== ENCOUNTER → 2019-11-27 | Outpatient (REF) | payer OTHER ==
[~2019-11-27] MED LIST: AUGM875T28 PO; COLA100C5 PO; ONDA4TAB6 PO; SIME180C PO
== END ==
LOC: M LAB REF 17:29
PROVIDERS: ATTEND Physician Assistant
DX: R19.7 Diarrhea, unspecified (principal); R10.9 Unspecified abdominal pain

== ENCOUNTER → 2019-11-28 | Outpatient (CLI) | payer OTHER ==
--- NOTE | 2019-11-28 17:41 | REP ---
Clinical: Generalized abdominal pain. Technique: Upright view of the chest with supine and upright views of the abdomen and pelvis. Findings: Frontal upright view of the chest demonstrates no acute cardiopulmonary process or free air below the diaphragm to suspect pneumoperitoneum. Supine and upright views of the abdomen and pelvis demonstrate nonspecific bowel gas pattern without obstruction or perforation. No organomegaly. No abnormal calcifications. Skeletal structures normal for age. Impression: Nonspecific bowel gas pattern. Electronically Signed by Pelon Louise MD 11/28/2019 05:33 P
== END ==
LOC: M RAD 17:00
PROVIDERS: ATTEND Physician Assistant
DX: R10.9 Unspecified abdominal pain (principal); K59.00 Constipation, unspecified; R14.0 Abdominal distension (gaseous)

== ENCOUNTER 2019-11-30 05:57 | Emergency (ER) | payer OTHER ==
[~2019-11-30] VITALS: Ht 193 cm; Wt 191.8 kg
[2019-11-30] MEDS ORDERED: COLA100C5 PO (06:10)
[2019-11-30] MEDS ORDERED: ISOVUE-370 76% 100ML VIAL As Ordered ONE (06:39)
[2019-11-30 06:46] LABS: BASO % 0.2 % (0.0-1.0); EOS % 0.6 % (0.0-3.0); HEMATOCRIT 43.1 % (42.0-52.0); HEMOGLOBIN 15.2 g/dl (13.5-17.5); LYMPH % 34.4 % (24.0-44.0); MEAN CORPUSCULAR HEMOGLOBIN 31.1 pg (27.0-33.0); MEAN CORPUSCULAR HGB CONC 35.3 g/dl (32.0-36.5); MEAN CORPUSCULAR VOLUME 88.3 fl (80.0-96.0); MONO % 11.9 % (0.0-5.0); NEUTROPHILS % 52.6 % (36.0-66.0); PLATELET COUNT, AUTOMATED 295 10^3/uL (150-450); RED BLOOD COUNT 4.88 10^6/uL (4.30-6.10); WHITE BLOOD COUNT 8.9 10^3/uL (4.0-10.0)
[2019-11-30 06:47] LABS: EOS # 0.1 10^3/uL (0.0-0.5); MONO # 1.1 10^3/uL (0.0-0.8); NEUTROPHILS # 4.7 10^3/uL (1.5-8.5)
[2019-11-30] MEDS ORDERED: ONDANSETRON 4MG/2ML VIAL IV ONE (07:00)
--- NOTE | 2019-11-30 07:09 | REPVR ---
PROCEDURE INFORMATION: Exam: CT Abdomen And Pelvis With Contrast Exam date and time: 11/30/2019 6:51 AM Age: 39 years old Clinical indication: Abdominal pain; Additional info: Periumbilic pain TECHNIQUE: Imaging protocol: Computed tomography of the abdomen and pelvis with intravenous contrast. Radiation optimization: All CT scans at this facility use at least one of these dose optimization techniques: automated exposure control; mA and/or kV adjustment per patient size (includes targeted exams where dose is matched to clinical indication); or iterative reconstruction. Contrast material: ISO 370; Contrast volume: 100 ml; Contrast route: IV; COMPARISON: CR Abdomen,Flat Upright,PA CHEST 11/28/2019 5:18 PM FINDINGS: Liver: The liver attenuation is 26 Hounsfield units and the spleen is 67 Hounsfield units. Gallbladder and bile ducts: The gallbladder is contracted with no stones. Pancreas: Normal. No ductal dilation. Spleen: Normal. No splenomegaly. Adrenals: Normal. No mass. Kidneys and ureters: Small nonobstructing right renal calculus. Stomach and bowel: Question of some jejunal wall thickening with perienteric induration suggesting enteritis. Appendix: Question of partial visualization of a small normal appendix. Intraperitoneal space: Unremarkable. No free air. No significant fluid collection. Vasculature: Unremarkable. No abdominal aortic aneurysm. Lymph nodes: Unremarkable. No enlarged lymph nodes. Bladder: Unremarkable as visualized. Reproductive: Unremarkable as visualized. Bones/joints: Mild degenerative change of the lumbar spine. Soft tissues: Small fat filled umbilical hernia. IMPRESSION: 1. Question of jejunal enteritis. 2. Fatty infiltration of the liver. 3. Small nonobstructing right renal calculus. Electronically signed by: Bijan Silverio On 11/30/2019 07:09:33 AM
[2019-11-30 07:29] LABS: ALBUMIN 3.9 GM/DL (3.2-5.2); BILIRUBIN,DIRECT 0.2 MG/DL (0.0-0.2); BILIRUBIN,TOTAL 0.6 MG/DL (0.2-1.0); ETHYL ALCOHOL (ETHANOL) 0.089 % (0.000-0.010); TOTAL PROTEIN 7.8 GM/DL (6.4-8.2)
[2019-11-30] MEDS ORDERED: AUGM875T28 PO (07:43)
[2019-11-30] MEDS ORDERED: SIME180C PO (07:45)
[2019-11-30] MEDS ORDERED: ONDA4TAB6 PO (07:45)
[2019-11-30 08:01] VITALS: BP 181/97
--- NOTE | 2019-11-30 08:12 | ED PDOC ---
Post-Departure Follow-Up dr ruelas faxed formal report of ct abd/p for fu Valencia Alcantara MD November 30, 2019 08:12
[2019-12-24] MEDS ORDERED: CETI10CA13 PO (08:23)
[2019-12-24] MEDS ORDERED: VITA100054 PO (08:23)
[2019-12-24] MEDS ORDERED: SALI0.6530 (08:23)
== END 2019-11-30 08:02 | disposition home or self-care (01) ==
LOC: M ED 05:57
DX: K52.9 Noninfective gastroenteritis and colitis, unspecified (principal); R35.0 Frequency of micturition; I10 Essential (primary) hypertension; R51 Headache; F41.9 Anxiety disorder, unspecified; F32.9 Major depressive disorder, single episode, unspecified; F10.10 Alcohol abuse, uncomplicated; F17.290 Nicotine dependence, other tobacco product, uncomplicated; J30.9 Allergic rhinitis, unspecified; Z79.899 Other long term (current) drug therapy
CPT/HCPCS: 74177; 80047; 80076; 81001; 83690; 85025; 96374; 99284; G0480; J2405; Q9967

== ENCOUNTER 2019-12-01 15:18 | Emergency (ER) | payer OTHER ==
[~2019-12-01] VITALS: Ht 193 cm; Wt 192.3 kg
[2019-12-01] MEDS ORDERED: NS 1,000 ML IV ONE (16:15)
[2019-12-01 16:39] LABS: BASO % 0.3 % (0.0-1.0); EOS # 0.1 10^3/uL (0.0-0.5); HEMATOCRIT 43.9 % (42.0-52.0); HEMOGLOBIN 15.4 g/dl (13.5-17.5); LYMPH # 1.6 10^3/uL (1.5-5.0); LYMPH % 23.8 % (24.0-44.0); MEAN CORPUSCULAR HEMOGLOBIN 31.6 pg (27.0-33.0); MEAN CORPUSCULAR HGB CONC 35.1 g/dl (32.0-36.5); MEAN CORPUSCULAR VOLUME 90.1 fl (80.0-96.0); MONO # 0.7 10^3/uL (0.0-0.8); MONO % 10.2 % (0.0-5.0); NEUTROPHILS # 4.4 10^3/uL (1.5-8.5); NEUTROPHILS % 64.4 % (36.0-66.0); PLATELET COUNT, AUTOMATED 250 10^3/uL (150-450); RED BLOOD COUNT 4.87 10^6/uL (4.30-6.10); WHITE BLOOD COUNT 6.8 10^3/uL (4.0-10.0)
[2019-12-01 17:10] VITALS: BP 147/77
[2019-12-01 17:12] LABS: ALBUMIN 3.9 GM/DL (3.2-5.2); ALT/SGPT 68 U/L (12-78); BILIRUBIN,DIRECT 0.2 MG/DL (0.0-0.2); BILIRUBIN,TOTAL 0.8 MG/DL (0.2-1.0); BLOOD UREA NITROGEN 6 MG/DL (7-18); CARBON DIOXIDE LEVEL 28 MEQ/L (21-32); CHLORIDE LEVEL 103 MEQ/L (98-107); CREATININE FOR GFR 0.94 MG/DL (0.70-1.30); GLOMERULAR FILTRATION RATE > 60.0 (>60); GLUCOSE, FASTING 99 MG/DL (70-100); LIPASE 59 U/L (73-393); POTASSIUM SERUM 3.9 MEQ/L (3.5-5.1); SODIUM LEVEL 138 MEQ/L (136-145); TOTAL PROTEIN 7.6 GM/DL (6.4-8.2)
[2019-12-24] MEDS ORDERED: SALI0.6530 (08:23)
[2019-12-24] MEDS ORDERED: VITA100054 PO (08:23)
[2019-12-24] MEDS ORDERED: CETI10CA13 PO (08:23)
== END 2019-12-01 17:33 | disposition home or self-care (01) ==
LOC: M ED 15:18
DX: K59.00 Constipation, unspecified (principal); I10 Essential (primary) hypertension; F41.9 Anxiety disorder, unspecified; F32.9 Major depressive disorder, single episode, unspecified; R51 Headache; Z85.841 Personal history of malignant neoplasm of brain

== ENCOUNTER 2019-12-19 16:34 | Emergency (ER) | payer OTHER ==
[~2019-12-19] VITALS: Ht 193 cm; Wt 190.9 kg
[2019-12-19] MEDS ORDERED: FLON1SPR NARES (16:40)
[2019-12-19] MEDS ORDERED: OMEP-221 PO (16:40)
[2019-12-19] MEDS ORDERED: ZYRTTAB8 PO (16:41)
[2019-12-19] MEDS ORDERED: GI COCKTAIL 50ML BTL(HYOSCYAMINE/MAALOX/LIDOCAINE VISCOUS)(1:3:1) PO ONE (18:30)
[2019-12-19 19:44] LABS: BASO % 0.4 % (0.0-1.0); EOS # 0.1 10^3/uL (0.0-0.5); EOS % 0.6 % (0.0-3.0); HEMATOCRIT 46.2 % (42.0-52.0); LYMPH # 1.8 10^3/uL (1.5-5.0); LYMPH % 18.4 % (24.0-44.0); MEAN CORPUSCULAR HEMOGLOBIN 31.9 pg (27.0-33.0); MEAN CORPUSCULAR HGB CONC 34.6 g/dl (32.0-36.5); MONO # 0.7 10^3/uL (0.0-0.8); MONO % 7.5 % (0.0-5.0); NEUTROPHILS % 72.7 % (36.0-66.0); PLATELET COUNT, AUTOMATED 312 10^3/uL (150-450); RED BLOOD COUNT 5.02 10^6/uL (4.30-6.10); WHITE BLOOD COUNT 9.6 10^3/uL (4.0-10.0)
[2019-12-19] MEDS ORDERED: ISOVUE-370 76% 100ML VIAL As Ordered ONE (19:50)
[2019-12-19 20:12] LABS: ALBUMIN 3.8 GM/DL (3.2-5.2); ALT/SGPT 108 U/L (12-78); BILIRUBIN,DIRECT 0.2 MG/DL (0.0-0.2); BILIRUBIN,TOTAL 0.6 MG/DL (0.2-1.0); CK-MB VALUE MASS < 1.0 NG/ML (<3.6); CPK CREATINE PHOSPHOKINASE 56 U/L (39-308); LIPASE 60 U/L (73-393); MB/CK RELATIVE INDEX 1.79 (< OR =4); TOTAL PROTEIN 7.6 GM/DL (6.4-8.2); TROPONIN I < 0.02 NG/ML (< 0.10)
--- NOTE | 2019-12-19 20:31 | REPVR ---
PROCEDURE INFORMATION: Exam: CT Abdomen And Pelvis With Contrast Exam date and time: 12/19/2019 8:08 PM Age: 39 years old Clinical indication: Abdominal pain; Epigastric; Additional info: Epigastric pain HX of inflammation to jejunum TECHNIQUE: Imaging protocol: Computed tomography of the abdomen and pelvis with intravenous contrast. Radiation optimization: All CT scans at this facility use at least one of these dose optimization techniques: automated exposure control; mA and/or kV adjustment per patient size (includes targeted exams where dose is matched to clinical indication); or iterative reconstruction. Contrast material: ISOVUE 370; Contrast volume: 100 ml; Contrast route: IV; COMPARISON: CT ABD/PEL W/IV CONTRAST ONLY 11/30/2019 6:40 AM FINDINGS: Lungs: The lung bases appear clear. Heart: The heart is normal in size. Liver: There is moderate fatty infiltration of the liver. Gallbladder and bile ducts: Normal appearing gallbladder. Pancreas: Normal appearing pancreas. Spleen: Normal appearing spleen. Adrenals: Normal adrenal glands. Kidneys and ureters: There is enhancement of both kidneys. There is a small calcified stone upper pole right kidney. Stomach and bowel: Normal appearing small bowel. Normal appearing colon. On the previous exam there was concern regarding the jejunum and this is no longer identified. Appendix: No evidence of appendicitis. Intraperitoneal space: There is no evidence of pneumoperitoneum. There is no evidence of mesenteric mass. There is no evidence of free fluid in the peritoneal cavity. Vasculature: There is opacification of the aorta which appears normal in size and intact. There is opacification of the SMV and the SMA. Lymph nodes: Unremarkable. No enlarged lymph nodes. Bladder: Normal appearing urinary bladder. Reproductive: Normal appearing prostate. Bones/joints: There is no evidence of fracture. There is facet hypertrophy at multiple levels with ligamentous calcification causing central spinal canal narrowing. Soft tissues: Unremarkable. IMPRESSION: No evidence of bowel abnormality. Electronically signed by: Nico Vera On 12/19/2019 20:31:03 PM
[2019-12-19 20:55] VITALS: BP 149/90
--- NOTE | 2019-12-19 21:16 | ECGEPIP ---
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
[2019-12-24] MEDS ORDERED: VITA100054 PO (08:23)
[2019-12-24] MEDS ORDERED: SALI0.6530 (08:23)
[2019-12-24] MEDS ORDERED: CETI10CA13 PO (08:23)
== END 2019-12-19 21:04 | disposition home or self-care (01) ==
LOC: M ED 16:34
DX: R10.9 Unspecified abdominal pain (principal); R19.7 Diarrhea, unspecified; I10 Essential (primary) hypertension; Z79.899 Other long term (current) drug therapy; F17.210 Nicotine dependence, cigarettes, uncomplicated
CPT/HCPCS: 36415; 74177; 80047; 80076; 81001; 82550; 82553; 83690; 84484; 85025; 93005; 99284; Q9967

== ENCOUNTER → 2019-12-29 | Outpatient (CLI) | payer OTHER ==
[~2019-12-29] MED LIST changes: +CETI10CA13 PO; +FLON1SPR NARES; +OMEP-221 PO; +SALI0.6530; +VITA100054 PO; +ZYRTTAB8 PO
== END ==
LOC: M LABSMTC 11:25
PROVIDERS: ATTEND Anesthesiology
DX: Z01.818 Encounter for other preprocedural examination (principal); Z11.59 Encounter for screening for other viral diseases
CPT/HCPCS: 87486; 87581; 87633; 87798; C9803

== ENCOUNTER 2019-12-31 08:20 | Day surgery (SDC) | payer OTHER ==
[~2019-12-31] VITALS: Ht 193 cm; Wt 183.2 kg
[~2019-12-31 08:20] MED LIST changes: +NS 1,000 ML IV ONE
[2019-12-31] MEDS ORDERED: fentaNYL 100 MCG/2 ML INJECTION (J3010) As Ordered ONE (09:38)
[2019-12-31] MEDS ORDERED: propofoL 200 MG/20 ML VIAL As Ordered ONE (09:43)
[2019-12-31] MEDS ORDERED: LIDOCAINE 2% 100MG/5ML SDV (FOR ANES.) As Ordered ONE (09:43)
--- NOTE | 2019-12-31 10:01 | ROOR ---
Patient Name: Andrea Quintana Procedure Date: 12/31/2019 9:40 AM Date of : 1980 Age: 39 Room: [facility] Gender: Male Note Status: Finalized Procedure: Upper Endoscopy + Biopsies Indications: Epigastric abdominal pain, Abnormal CT of the GI tract, Abdominal distention Providers: Felipe Moss MD Referring MD: 1. No Referring Physician 1. No Referring Physician, Admin. Requesting Provider: Medicines: Monitored Anesthesia Care Complications: No immediate complications. Procedure: Pre-Anesthesia Assessment: - The heart rate, respiratory rate, oxygen saturations, blood pressure, adequacy of pulmonary ventilation, and response to care were monitored throughout the procedure. The Endoscope was introduced through the mouth, and advanced to the second part of duodenum. The upper GI endoscopy was accomplished without difficulty. The patient tolerated the procedure well. Findings: The Z-line was variable and was found 40 cm from the incisors. Multiple biopsies were obtained with cold forceps for evaluation to rule out Be's Esophagus randomly at the gastroesophageal junction. No other significant abnormalities were identified in a careful examination of the stomach. Biopsies were taken with a cold forceps in the gastric antrum for Helicobacter pylori testing. The exam of the duodenum was otherwise normal. Impression: - Z-line variable, 40 cm from the incisors. - Multiple biopsies were obtained at the gastroesophageal junction. - Biopsies were taken with a cold forceps for Helicobacter pylori testing. - The examination was otherwise normal. Recommendation: - Patient has a contact number available for emergencies. The signs and symptoms of potential delayed complications were discussed with the patient. Return to normal activities tomorrow. Written discharge instructions were provided to the patient. - High fiber diet. - Discharge patient to home. - Follow an antireflux regimen. - Continue present medications. - Await pathology results. - Telephone GI clinic for pathology results in 1 week. - Return to referring physician. - The findings and recommendations were discussed with the patient's family. Felipe Moss MD Felipe Moss MD 12/31/2019 10:01:15 AM Electronically signed by Felipe Moss MD Number of Addenda: 0 Note Initiated On: 12/31/2019 9:40 AM Estimated Blood Loss: Estimated blood loss: none.
--- NOTE | 2019-12-31 10:18 | ROOR ---
Patient Name: Andrea Quintana Procedure Date: 12/31/2019 9:41 AM Date of : 1980 Age: 39 Room: [facility] Gender: Male Note Status: Finalized Procedure: Total Colonoscopy to Cecum + Biopsy Polypectomy + Ileostomy Indications: Lower abdominal pain, Change in bowel habits Providers: Felipe Moss MD Referring MD: 1. No Referring Physician 1. No Referring Physician, Admin. Requesting Provider: Medicines: Monitored Anesthesia Care Complications: No immediate complications. Procedure: Pre-Anesthesia Assessment: - The heart rate, respiratory rate, oxygen saturations, blood pressure, adequacy of pulmonary ventilation, and response to care were monitored throughout the procedure. The Colonoscope was introduced through the anus and advanced to the cecum, identified by appendiceal orifice and ileocecal valve. The colonoscopy was performed without difficulty. The patient tolerated the procedure well. The quality of the bowel preparation was excellent. Findings: The perianal and digital rectal examinations were normal. Non-bleeding internal hemorrhoids were found during retroflexion. The hemorrhoids were small and Grade I (internal hemorrhoids that do not prolapse). A diminutive polyp was found at 25 cm proximal to the anus. The polyp was sessile. The polyp was removed with a cold biopsy forceps. Resection and retrieval were complete. The exam was otherwise without abnormality on direct and retroflexion views. The terminal ileum appeared normal. Biopsies for histology were taken with a cold forceps from the ascending colon, transverse colon and sigmoid colon for evaluation of microscopic colitis. The exam was otherwise without abnormality on direct and retroflexion views. Impression: - Non-bleeding internal hemorrhoids. - One diminutive polyp at 25 cm proximal to the anus, removed with a cold biopsy forceps. Resected and retrieved. - The examination was otherwise normal on direct and retroflexion views. - The examined portion of the ileum was normal. Biopsied. - The examination was otherwise normal on direct and retroflexion views. - The exam was otherwise normal to the cecum. Recommendation: - Patient has a contact number available for emergencies. The signs and symptoms of potential delayed complications were discussed with the patient. Return to normal activities tomorrow. Written discharge instructions were provided to the patient. - High fiber diet. - Discharge patient to home. - Await pathology results. - Telephone GI clinic for pathology results in 1 week. - Repeat colonoscopy at age 51 for screening purposes. - Return to referring physician. - The findings and recommendations were discussed with the patient's family. Felipe Moss MD Felipe Moss MD 12/31/2019 10:17:33 AM Electronically signed by Felipe Moss MD Number of Addenda: 0 Note Initiated On: 12/31/2019 9:41 AM Estimated Blood Loss: Estimated blood loss: none.
[2019-12-31 10:35] VITALS: BP 130/67
== END 2019-12-31 10:45 | disposition home or self-care (01) ==
LOC: M OPP 08:20
PROVIDERS: ATTEND Internal Medicine Gastroenterology
DX: K64.0 First degree hemorrhoids (principal); K63.5 Polyp of colon; R10.30 Lower abdominal pain, unspecified; R19.4 Change in bowel habit; K22.8 Other specified diseases of esophagus; R10.13 Epigastric pain; R14.0 Abdominal distension (gaseous); R93.3 Abnormal findings on diagnostic imaging of other parts of digestive tract; Z79.899 Other long term (current) drug therapy; Z87.891 Personal history of nicotine dependence
CPT/HCPCS: 43239; 45380; 88305; J3010

== ENCOUNTER 2022-10-10 16:19 | Emergency (ER) | payer OTHER ==
[~2022-10-10] VITALS: Ht 193 cm; Wt 212.2 kg
[~2022-10-10 16:19] MED LIST changes: -NS 1,000 ML IV ONE; -OMEP-221 PO; +OMEP40CA5 PO; -SIME180C PO; +SIME180C25 PO
[2022-10-10] MEDS ORDERED: ACET-907 PO (16:34)
[2022-10-10] MEDS ORDERED: HYDR-3713 PO (18:43)
[2022-10-10] MEDS ORDERED: NAPR-837 PO (18:43)
[2022-10-10 19:00] VITALS: BP 188/104
== END 2022-10-10 20:00 | disposition home or self-care (01) ==
LOC: M ED 16:19
DX: S46.002A Unspecified injury of muscle(s) and tendon(s) of the rotator cuff of left shoulder, initial encounter (principal); X50.0XXA Overexertion from strenuous movement or load, initial encounter; Y99.0 Civilian activity done for income or pay; I10 Essential (primary) hypertension; J30.2 Other seasonal allergic rhinitis; Z79.899 Other long term (current) drug therapy

== ENCOUNTER → 2022-10-12 | Outpatient (CLI) | payer OTHER ==
[~2022-10-12] MED LIST changes: +ACET-907 PO; +HYDR-3713 PO; +NAPR-837 PO
== END ==
LOC: M SOG 08:27
PROVIDERS: ATTEND Orthopaedic Surgery
DX: M25.512 Pain in left shoulder (principal); Z53.9 Procedure and treatment not carried out, unspecified reason

== ENCOUNTER → 2022-10-23 | Outpatient (CLI) | payer OTHER | LOC: M SOG 08:33 | PROVIDERS: ATTEND Orthopaedic Surgery | DX: M25.512 Pain in left shoulder (principal) ==

== ENCOUNTER → 2023-05-23 | Outpatient (REF) | payer OTHER | LOC: M LAB REF 17:40 | PROVIDERS: ATTEND Physician Assistant | DX: J02.9 Acute pharyngitis, unspecified (principal) ==

== ENCOUNTER 2023-12-08 12:06 | Emergency (ER) | payer OTHER ==
[~2023-12-08] VITALS: Ht 193 cm; Wt 208.2 kg
[~2023-12-08 12:06] MED LIST changes: +ARTIDRO OS; +CVS1MIS79 XX; +EYEOIN OS; +PRED20TA PO; -SALI0.6530; +SODI88SP; +VALT1TAB PO
[2023-12-08 13:12] LABS: BASO % 0.3 % (0.0-1.0); EOS # 0.1 10^3/uL (0.0-0.5); EOS % 0.7 % (0.0-3.0); HEMATOCRIT 39.9 % (42.0-52.0); HEMOGLOBIN 13.8 g/dl (13.5-17.5); LYMPH # 1.8 10^3/uL (1.5-5.0); LYMPH % 23.9 % (24.0-44.0); MEAN CORPUSCULAR HEMOGLOBIN 30.5 pg (27.0-33.0); MEAN CORPUSCULAR HGB CONC 34.6 g/dl (32.0-36.5); MEAN CORPUSCULAR VOLUME 88.1 fl (80.0-96.0); MONO # 0.6 10^3/uL (0.0-0.8); MONO % 8.5 % (2.0-8.0); NEUTROPHILS # 4.9 10^3/uL (1.5-8.5); NEUTROPHILS % 66.2 % (36.0-66.0); PLATELET COUNT, AUTOMATED 307 10^3/uL (150-450); RED BLOOD COUNT 4.53 10^6/uL (4.30-6.10); WHITE BLOOD COUNT 7.5 10^3/uL (4.0-10.0)
[2023-12-08 13:25] LABS: INR 1.08; PARTIAL THROMBOPLASTIN TIME 29.6 SECONDS (24.8-34.2); PROTHROMBIN TIME 13.7 SECONDS (12.5-14.5)
[2023-12-08 13:36] LABS: ALBUMIN 3.8 G/DL (3.2-5.2); ALKALINE PHOSPHATASE 76 U/L (46-116); ALT/SGPT 55 U/L (7.0-40); AST/SGOT 24 U/L (<34); BILIRUBIN,DIRECT 0.2 MG/DL (<0.4); BILIRUBIN,TOTAL 0.7 MG/DL (0.3-1.2); BLOOD UREA NITROGEN 11 MG/DL (9-23); CARBON DIOXIDE LEVEL 28 MMOL/L (20-31); CHLORIDE LEVEL 104 MMOL/L (98-107); CK-MB VALUE MASS 1.8 NG/ML (<3.6); CPK CREATINE PHOSPHOKINASE 131 U/L (46-171); CREATININE FOR GFR 0.81 MG/DL (0.70-1.30); GLOMERULAR FILTRATION RATE > 60.0 (>60); GLUCOSE, FASTING 118 MG/DL (60-100); MB/CK RELATIVE INDEX 1.37 (< OR =4); SODIUM LEVEL 137 MMOL/L (136-145); TOTAL PROTEIN 7.2 G/DL (5.7-8.2)
[2023-12-08 13:38] LABS: FREE T4 1.21 NG/DL (0.89-1.76); THYROID STIMULATING HORMONE 1.248 uIU/ML (0.55-4.78)
[2023-12-08] MEDS ORDERED: MULT1TAB8 PO (13:57)
[2023-12-08] MEDS ORDERED: HOME MED LIST COMPLETE! XX SCH (14:00)
[2023-12-08 14:24] LABS: CK-MB VALUE MASS 1.5 NG/ML (<3.6)
[2023-12-08 14:25] LABS: MB/CK RELATIVE INDEX 1.2 (< OR =4)
[2023-12-08 15:06] VITALS: O2SAT 98
[2023-12-08 15:10] VITALS: BP 161/98
[2023-12-08] MEDS: METOPROLOL TART 25 MG TABLET PO ONE (15:10)
[2023-12-08 15:15] VITALS: BP 146/64; TEMP 98.5
[2023-12-08] MEDS ORDERED: METO25TA4 PO (15:15)
== END 2023-12-08 15:14 | disposition home or self-care (01) ==
LOC: M ED 12:06
DX: R00.2 Palpitations (principal); I10 Essential (primary) hypertension; F41.9 Anxiety disorder, unspecified; G51.0 Bell's palsy; F10.10 Alcohol abuse, uncomplicated; Z91.048 Other nonmedicinal substance allergy status; Z79.899 Other long term (current) drug therapy

== ENCOUNTER 2024-01-08 13:56 | Emergency (ER) | payer OTHER ==
[~2024-01-08] VITALS: Ht 193 cm; Wt 208.0 kg
[~2024-01-08 13:56] MED LIST changes: +METO25TA4 PO; +MULT1TAB8 PO; +ONDA-282 PO; -ONDA4TAB6 PO
[2024-01-08] MEDS ORDERED: METO25TA4 PO (17:25)
[2024-01-08] MEDS: METOPROLOL TART 25 MG TABLET PO ONE (17:26)
[2024-01-08 17:33] VITALS: BP 200/88; TEMP 97.7; O2SAT 97
== END 2024-01-08 17:34 | disposition home or self-care (01) ==
LOC: M ED 13:56
DX: Z76.0 Encounter for issue of repeat prescription (principal); I10 Essential (primary) hypertension; F17.290 Nicotine dependence, other tobacco product, uncomplicated

== ENCOUNTER → 2024-03-05 | Outpatient (REF) | payer OTHER ==
[2024-03-05 17:15] LABS: ALBUMIN 3.7 G/DL (3.2-5.2); ALKALINE PHOSPHATASE 78 U/L (46-116); ALT/SGPT 40 U/L (7.0-40); AST/SGOT 21 U/L (<34); BILIRUBIN,TOTAL 0.6 MG/DL (0.3-1.2); BLOOD UREA NITROGEN 14 MG/DL (9-23); CALCIUM LEVEL 9.4 MG/DL (8.5-10.1); CARBON DIOXIDE LEVEL 28 MMOL/L (20-31); CHLORIDE LEVEL 106 MMOL/L (98-107); CHOLESTEROL LEVEL 177 MG/DL (<200); CHOLESTEROL RISK RATIO 5.02 (<5); CREATININE FOR GFR 0.75 MG/DL (0.70-1.30); GLOMERULAR FILTRATION RATE > 60.0 (>60); GLUCOSE, FASTING 102 MG/DL (60-100); HDL CHOLESTEROL 35.2 MG/DL (>40); LDL CHOLESTEROL 102.8 MG/DL (<100); NON-HDL-C 141.8 MG/DL; POTASSIUM SERUM 4.3 MMOL/L (3.5-5.1); SODIUM LEVEL 139 MMOL/L (136-145); TOTAL PROTEIN 7.3 G/DL (5.7-8.2); TRIGLYCERIDES LEVEL 195 MG/DL (<150)
[2024-03-05 17:16] LABS: TOTAL 25(OH) VITAMIN D 19.6 NG/ML (20.0-100.0)
[2024-03-05 17:37] LABS: THYROID STIMULATING HORMONE 1.968 uIU/ML (0.55-4.78)
[2024-03-05 17:53] LABS: Trichomonas vaginalis (AMP) NOT DETECTED (NEGATIVE)
[2024-03-05 17:59] LABS: HEMOGLOBIN A1c 5.7 % (4.0-6.0)
[2024-03-05 18:17] LABS: GC DNA AMPLIFICATION NEGATIVE (NEGATIVE)
== END ==
LOC: M LAB REF 16:13
PROVIDERS: ATTEND Physician Assistant
DX: Z11.9 Encounter for screening for infectious and parasitic diseases, unspecified (principal); E66.01 Morbid (severe) obesity due to excess calories; R60.0 Localized edema

== ENCOUNTER → 2024-08-22 | Outpatient (REF) | payer OTHER ==
[~2024-08-22] MED LIST changes: -SIME180C25 PO; +SIME1CAP4 PO
[2024-08-22 18:32] LABS: BLOOD UREA NITROGEN 14 MG/DL (9-23); CALCIUM LEVEL 9.1 MG/DL (8.5-10.1); CARBON DIOXIDE LEVEL 26 MMOL/L (20-31); CHLORIDE LEVEL 104 MMOL/L (98-107); CREATININE FOR GFR 0.83 MG/DL (0.70-1.30); GLOMERULAR FILTRATION RATE > 60.0 (>60); GLUCOSE, FASTING 152 MG/DL (60-100); MAGNESIUM LEVEL 1.8 MG/DL (1.8-2.4); POTASSIUM SERUM 4.1 MMOL/L (3.5-5.1); SODIUM LEVEL 140 MMOL/L (136-145)
== END ==
LOC: M LAB REF 16:23
PROVIDERS: ATTEND Physician Assistant
DX: M79.671 Pain in right foot (principal)

== ENCOUNTER → 2024-10-23 | Outpatient (CLI) | payer OTHER | LOC: M CARPUL 14:31 | PROVIDERS: ATTEND Physician Assistant | DX: R60.0 Localized edema (principal) ==